=== PATIENT | female | born 1990 | race Caucasian/White ===

== ENCOUNTER 2024-01-06 17:43 | Outpatient (CLI) | payer BC, SELFPAY ==
[2024-01-06 17:58] VITALS: BP 131/80; PULSE 103
[2024-01-06 18:01] VITALS: RESP 17; TEMP 37.2
[2024-01-06 18:37] LABS: Amnisure Rom* Negative
[2024-01-06] MEDS: hydrOXYzine pamoate 25 MG CAPSULE 100 MG PO (20:25)
[2024-01-06] MEDS: MORPHINE 10 MG/ML inj IM (20:25)
--- NOTE | 2024-01-21 02:45 | PC.OBNST ---
NST Note NST Note Start: 01/06/24 17:46 Freq: ONCE Status: Discharge Protocol: Document 01/06/24 18:40 [facility] (Rec: 01/21/24 02:45 [facility] [id number]) NST Note 2 Para (# of births) 1 EDC 01/29/24 Gestational Age In Weeks & Days 38 Weeks & 6 Days Patient Presented with Complaint(s) of Contractions/cramping Reactive Yes Appropriate for Gestational Age Yes RN GerardoCase Date 01/06/24 ANGEL Kemp RN Date 01/06/24 OB NST charge Yes Complete NST Note via Write Note Yes The provider's electronic signature indicates the NST is reactive/appropriate for gestational age. *Note to provider: If an addendum is required, open the patient's chart and click on the note under the Nurse/Allied Health tab.
== END 2024-01-06 20:33 | disposition home or self-care (01) ==
LOC: OB OUT 17:43 → OB 17:44
PROVIDERS: PCP Student in an Organized Health Care Education/Training Program; Visit Provider Family Medicine
DX: O47.1 False labor at or after 37 completed weeks of gestation (principal); Z3A.38 38 weeks gestation of pregnancy
CPT/HCPCS: 59025; 84112; G0463; A9270; J2270

== ENCOUNTER 2024-01-07 18:45 | Inpatient (IN) | payer BC, SELFPAY ==
[2024-01-07] VITALS (39 sets, daily range): BP systolic 107–164; BP diastolic 57–87; PULSE 74–129; TEMP 36.9; O2SAT 90–100; BMI 34.3
[2024-01-07 18:48] LABS: Basophils Percent Auto 0.3 % (0.0-3.0); Eosinophils Percent Auto 0.3 % (0.0-7.0); Hematocrit 39.7 % (33.0-51.0); Immature Granulocytes Pct Auto 0.2 %; Lymphocytes Percent Auto 12.3 % (20-44); Mean Corpuscular HGB Conc 33 gm/dL (32-36); Mean Corpuscular Hemoglobin 30 pg (26-34); Mean Corpuscular Volume 91 fL (80-100); Monocytes Percent Auto 3.9 % (0.0-11.0); Platelet Count* 364 K/uL (140-440); RDW Coefficient of Variation % 12.8 % (11.5-15.5); Red Blood Count 4.37 m/uL (4.00-5.20); White Blood Count* 18.06 K/uL (4.50-11.00)
[2024-01-07 18:54] LABS: Slide Review Reflex No
[2024-01-07] MEDS: LACTATED RINGERS 1000 ML 1,000 ML 1200 ML IV ×2 (19:03→19:49)
[2024-01-07] MEDS: LIDOCAINE 2% (PF) 5 ML VIAL EPIDURAL (19:45)
[2024-01-07] MEDS: ROPIVACAINE 0.2% 100 ml 100 ML 10 MG EPIDURAL (19:45)
--- NOTE | 2024-01-07 19:52 | PM.ANBPRC ---
PFSH PFSH Social History What is your current living situation?: I presently have a place to live Problems where you live: no known problems In the past 12 months, utilities in danger of being shut off: no In past 12 months, lack of transportation kept you from medical appts, meetings, work, or getting things needed for daily living: no In the past 12 mos, have been you worried that your food would run out before you had money to buy more?: never true In the past 12 mos, the food you bought just didn't last and you didn't have money to buy more?: never true Smoking Status: Never smoker How often does anyone, including family, friends and others, physically hurt you: never How often does anyone, including family, friends and others, insult or talk down to you: never How often does anyone, including family, friends and others, threaten you with harm: never How often does anyone, including family, friends and others, scream or curse at you: never Meds Home Medications and Allergies Allergies Allergy/AdvReac Type Severity Reaction Status Date / Time No Known Allergies Allergy Verified 01/06/24 18:19 Results Labs Labs: Laboratory Results - last 24 hr 01/07/24 18:39 WBC 18.06 H RBC 4.37 Hgb 13.0 Hct 39.7 MCV 91 MCH 30 MCHC 33 RDW Coeff of [place]im 12.8 Plt Count 364 Neut % (Auto) 83.0 H Lymph % (Auto) 12.3 L [place] % (Auto) 3.9 Eos % (Auto) 0.3 Baso % (Auto) 0.3 Neut # (Auto) 15.00 H Lymph # (Auto) 2.20 [place] # (Auto) 0.70 Eos # (Auto) 0.10 Baso # (Auto) 0.10 Abs Immat Gran (auto) 0.00 Imm/Tot Granulo (auto) 0.2 Vital Signs Vital Signs: Last Vital Signs Pulse 99 01/07/24 19:51 BP 136/78 01/07/24 19:51 Pulse Ox 100 01/07/24 19:51 Weight: 85.23 kg Height: 157.48 cm Anesthesia Procedures Epidural Insertion Patient Location: OB Start Time: 19:37 Stop Time: 20:00 Start Date: 01/07/24 Stop Date: 01/07/24 Reason for Block: primary anesthetic Patient Position: sitting Performed By: Isac Leung Preanesthetic Checklist: IV checked, risks and benefits discussed, surgical consent, monitors and equipment checked, pre-op evaluation, timeout performed and anesthesia consent Prep: chlorhexidine gluconate Monitoring: blood pressure monitoring, radiation monitor, continuous pulse oximetry and heart rate Approach: midline Vertebral Space: lumbar (1-5) Needle Type: Tuohy needle Injection Technique: continuous catheter (catheter) Needle gauge: 17 Needle Length (cm): 10 cm Needle Insertion Depth (cm): 5 Catheter Gauge: 19 Catheter Type: multi-orifice Catheter at skin depth (cm): 10 Test Dose Result: negative and lidocaine 1.5% with epinephrine 1 to 200,000
--- NOTE | 2024-01-07 22:15 | PM.OBHPLI ---
OB - H&P: HPI Labor/Induction History of Present Illness Date Seen: 01/07/24 Chief Complaint: The patient is a 33 year old 2 para 1 at 39 weeks gestation by embryo transfer date, who presents with painful regular contractions. Chief complaint: OB : 2 Para: 1 Narrative: Chacho Ortiz is a 33 year old at 39 weeks by embryo transfer who presented to labor and delivery this evening with painful regular contractions. Contractions started 01/05/24, and had been every 5-6 minutes, however she was not making cervical change. This evening was 4.5 cm on arrival (had been 3 on previous checks). She denies LOF. has been uncomplicated. Since arrival, she has recieved an epidural for analgesia and is comfortable. Cervix 8/90/0. She underwent AROM with return of a large amount of clear fluid. History of Present Dating criteria: other (embryo transfer) care: good care Ultrasounds: normal 1st trimester US and normal mid trimester US Medical complications: none Labs Blood type: A (+) positive Rubella: immune RPR/VDLR: nonreactive GBS status: negative HBsAG: negative Review of Systems Status of ROS: Reports: 6 or more systems reviewed and unremarkable except as noted in History and below Meds Home Medications and Allergies Home Medications Medication Instructions Recorded Confirmed Type No Known Home Medications 01/07/24 01/07/24 History Allergies Allergy/AdvReac Type Severity Reaction Status Date / Time No Known Allergies Allergy Verified 01/06/24 18:19 OB - H&P: Exam Physical Exam: Vital signs: Temp Pulse BP Pulse Ox 98.5 F 104 H 125/81 100 01/07/24 21:28 01/07/24 22:13 01/07/24 22:13 01/07/24 20:06 Constitutional: Constitutional: no acute distress Routine HEENT Exam: Head: Present atraumatic and normal inspection Eye: Present EOMI and PERRL ENT: Present mucous membranes moist Routine Neck Exam: Neck: Present full ROM Routine Respiratory Exam: Respiratory: Present CTA bilaterally Routine Cardiovascular Exam: Cardiovascular: RRR Detailed Labor and Delivery Exam: Patient Gravid: Yes Dilation (cm): 8 Effacement (%): 90 Cervix position: anterior Consistency: soft Contraction frequency (min): 5 Contraction intensity: Moderate Fetus (Single): Station: 0 Amniotic Membrane Status: AROM Amniotic Membrane Fluid Description: Clear Heart Rate Baseline: 135 Monitor Accelerations: Present Monitor Decelerations: None Residential Variability: Moderate (6-25) Routine Extremities Exam: Comments: no edema Routine Skin Exam: Present intact and normal turgor Routine Neurological Exam: Present alert, oriented X3 and CN II-XII intact Routine Psychiatric Exam: Present normal affect and normal thought process OB - Results Labs Labs: Short CBC 01/07/24 Range/Units 18:39 WBC 18.06 H (4.50-11.00) K/uL Hgb 13.0 (12.0-16.0) gm/dL Hct 39.7 (33.0-51.0) % Plt Count 364 (140-440) K/uL OB - Problem Based A/P Additional Plan (1) Active labor at term: Status: Acute Plan expectant management. Discussed adding pitocin if needed to increase frequency of contractions, especially during second stage. Anticipate . PP hemorrhage with last delivery. Will have pp hemorrhage medications ready if needed. Delivery/Labor/Induction Plan Plan: expectant management
[2024-01-08] VITALS (66 sets, daily range): BP systolic 63–143; BP diastolic 35–83; PULSE 72–129; RESP 14–20; TEMP 36.2–37.2; O2SAT 97–100
[2024-01-08] MEDS: OXYTOCIN 30 unit/500 ML in NS 30 UNIT/500 ML BAG 325 UNIT IVPB (02:01)
[2024-01-08] MEDS: LACTATED RINGERS 1000 ML 1,000 ML 125 ML IV (02:36)
[2024-01-08] MEDS: IBUPROFEN 600 MG TABLET PO ×4 (02:44→22:10)
[2024-01-08] MEDS: CEFAZOLIN 2 GM in 0.9 % SODIUM CHLORIDE Mini-bag 100 ML IVPB (03:07)
[2024-01-08] MEDS: METHYLERGONOVINE MALEATE 0.2 MG/ML INJ IM (03:12)
--- NOTE | 2024-01-08 03:21 | W.PM.VAGDEL1 ---
Procedure Procedure Done: Global Delivery augmentation: rupture of membranes Delivery monitor: external FHT and external uterine Route of delivery: Laceration description: None Estimated blood loss (mL): 750 Anesthesia type: Epidural Complications: Retained placenta. Narrative: The patient is a 33 year-old admitted on 01/07/2024 at 39 Weeks, 0 Days gestation for active labor.? Cervical exam on admission was 4 cm/80 % effaced/-2 station with membranes intact in vertex presentation.? Contractions were every 5-6 minutes.? heart rate demonstrated baseline 145 bpm with moderate variability, + accelerations, - decelerations; a category 1 tracing.? AROM occurred at 2210 with clear fluid. ? Labor Analgesia:? epidural ? Pitocin:? post-delivery ? Labor onset:? 2139 ? Complete:? 0116 ? Pushing:? 0120 ? heart tones during second stage were category 2. ? At 0200 a viable female delivered in vertex OA presentation over intact perineum via spontaneous vaginal delivery.? Infant was placed on maternal abdomen.? Cord was clamped and cut after a 30-60 second delay.? Nose and mouth were bulb suctioned.? Infant weight pending.? 8 at 1 minute and 9 at 5 minutes.? Shoulder dystocia: no.? Nuchal cord: no. ? Placenta did not deliver spontaneously. Attempt was made to manually remove the placenta after the umbilical cord detached at 0220. Placental removal as not successful, so mirror machine feeder military communications specialist was called to the bedside. Dr. Gillis was able to partially remove the placental at 0300 and patient was then taken to the OR for examination under anesthesia and removal. See her note for details. ? Mother and were stable after delivery. ? Lacerations:? none. ? Blood loss: 750 mL. Blood loss measurement type: QBL ? Sponge and needles counts are correct. [place] Infant Gender: Female presentation: vertex Placental Delivery Description: Spontaneous Cord Description: 3 Vessels
--- NOTE | 2024-01-08 03:22 | PM.OBCN1 ---
OB - CN: HPI Date of Consult Time Seen by Provider: 03:22 Date Seen: 01/08/24 Patient: Serena Patient Consult date: 01/08/24 Requesting Physician: Sia Davies MD Primary Care Provider: Sangeeta Armendariz MD Consult Narrative Narrative: Chacho is a 33 year old G 2, now P2 at 39 weeks gestation that was admitted to the Center on 01/07/24 for spontaneous labor. She had an uncomplicated delivery with Dr. Davies. I was consulted for retained placenta after 30 minutes traction without delivery. She had attempted a manual sweep but felt that the placenta was too tethered so aborted the attempt. This is an IVF and she had retained placenta last time as well. No known uterine anomalies and her ultrasound had been normal throughout . Fundus was 2 cm above the umbilicus on my initial exam. She has great pain control. I did manual sweep at bedside and was able to remove most of the placenta. It did not come out intact. BSUS showed a retained piece of the placenta at the uterine fundus. I recommended exam under anesthesia and suction dilation and curettage. I would not be able to remove it manually and leaving it would risk infection and hemorrhage. Risks/benefits/alternative was discussed at the patient. We also discussed risk of laparoscopic surgery including pain, bleeding, infection, and damages to the surrounding structures of the operative site. All questions were answered to patient's satisfaction and she signed consent for exam under anesthesia and suction dilation and curettage. 2 grams of Ancef given She received 40 u of pitocin and 0.2mg of methergine x 1 due atony after placenta removal. She responded well to the intervention and uterus was firm and 2 cm below umbilicus. EBL of delivery and placenta extraction: 750 cc - OR team notified History History 2 Elective abortions Para 2 Spontaneous abortions Hx # Term Pregnancies Ectopic pregnancies Hx # Pregnancies Multiple births Number of Living Children 1 Labs Blood type: A (+) positive Rubella: immune RPR/VDLR: nonreactive GBS status: negative HBsAG: negative OB Labs: Lab Assessment Start: 01/07/24 18:34 Freq: ONCE Status: Complete Protocol: PC.OBGBS Activity Type Activity Date Activity User E-sign Co-sign Detail Recorded Client Recorded Date Recorded By Document 01/07/24 18:35 HCR [id number] 01/07/24 18:39 HCR 01/07/24 18:35 Lab Assessment GBS Status negative GBS Additional Criteria None No Treatment Needed OK Are Labs Available Yes Maternal Blood Type A Maternal RH Factor Positive Evaluate Maternal Rubella Immune Status Immune Hepatitis B Surface Antigen Negative Maternal HIV Status Negative Maternal Syphillis (RPR) Status Negative [facility] Medical History (Updated 01/08/24 @ 07:54 by Ninfa Gillis MD) SHAYY II (cervical intraepithelial neoplasia II) ?N87.1 - Moderate cervical dysplasia (ICD-10) Asthma ?J45.909 - Unspecified asthma, uncomplicated (ICD-10) Social History What is your current living situation?: I presently have a place to live Problems where you live: no known problems In the past 12 months, utilities in danger of being shut off: no In past 12 months, lack of transportation kept you from medical appts, meetings, work, or getting things needed for daily living: no In the past 12 mos, have been you worried that your food would run out before you had money to buy more?: never true In the past 12 mos, the food you bought just didn't last and you didn't have money to buy more?: never true Smoking Status: Never smoker How often does anyone, including family, friends and others, physically hurt you: never How often does anyone, including family, friends and others, insult or talk down to you: never How often does anyone, including family, friends and others, threaten you with harm: never How often does anyone, including family, friends and others, scream or curse at you: never Meds Home Medications and Allergies Home Medications Medication Instructions Recorded Confirmed Type No Known Home Medications 01/07/24 01/07/24 History Allergies Allergy/AdvReac Type Severity Reaction Status Date / Time No Known Allergies Allergy Verified 01/06/24 18:19 OB - H&P: Exam Physical Exam: Vital signs: Temp Pulse BP Pulse Ox 98.5 F 112 H 127/75 100 01/07/24 23:01 01/08/24 03:14 01/08/24 03:14 01/07/24 20:06 OB - Results Labs Labs: Short CBC 01/07/24 Range/Units 18:39 WBC 18.06 H (4.50-11.00) K/uL Hgb 13.0 (12.0-16.0) gm/dL Hct 39.7 (33.0-51.0) % Plt Count 364 (140-440) K/uL OB - CN: A/P Assessment and Plan (1) Status post vaginal delivery: Status: Acute (2) Retained placenta: Status: Acute
[2024-01-08] MEDS: PHENYLEPHRINE 100 MCG/ML SYRINGE IVP ×4 (03:25→05:19)
[2024-01-08] MEDS: ONDANSETRON 2 MG/ML inj 4 MG IV (04:32)
[2024-01-08] MEDS: ROPIVACAINE 0.2% 100 ml 100 ML 10 MG EPIDURAL (04:57)
[2024-01-08] MEDS: ePHEDrine sulfate 5 MG/ML inj 10 MG IVP (05:25)
[2024-01-08] MEDS: CLINDAMYCIN 900 MG/50 ML-D5W IVPB (06:25)
[2024-01-08] MEDS: GENTAMICIN 320 MG in 0.9 % SODIUM CHLORIDE 100 ml 100 ML 108 MG IVPB (06:45)
[2024-01-08] MEDS: LACTATED RINGERS 1000 ML 1,000 ML 935 ML IV (06:45)
[2024-01-08] MEDS: AMPICILLIN 2 GM in 0.9 % SODIUM CHLORIDE Mini-bag 100 ML IVPB (07:10)
--- NOTE | 2024-01-08 07:19 | P.ANES_ITS ---
Anesthesia Charges Start Date/Time Anesthesia Start Date: 01/08/24 Anesthesia Start Time: 06:16 Stop Date/Time Anesthesia Stop Date: 01/08/24 Anesthesia Stop Time: 07:14 Summary Emergency: [employer]
[2024-01-08] MEDS: ACETAMINOPHEN 500 MG TABLET 1000 MG PO ×2 (07:56→13:50)
--- NOTE | 2024-01-08 07:58 | P.GYNPRC_ITS ---
Procedure Note Time Seen by Provider: 06:00 Date of procedure: 01/08/24 Procedure Description: DILATION AND CURETTAGE PREOPERATIVE DIAGNOSIS: 1. Retained placenta POSTOPERATIVE DIAGNOSIS: Retained placenta PROCEDURE: 1. EUA 2. Suction dilation and curettage - ultrasound-guided SURGEON: Ninfa Gillis MD ANESTHESIA: General FINDINGS: 1. Uterus 2 cm below the umbilicus/ anteverted/ no adnexal masses on EUA. 2. Normal external genitalia - no perineal lacerations, normal appearing pos tpartum cervix without lacerations. Clots noted in the lower uterine segment 3. Retained placenta at the fundus FLUIDS: 1.3 L QUANTITATIVE BLOOD LOSS: 315 mL URINE OUTPUT: 200 mL COMPLICATIONS: None PREOP ANTIBIOTIC: Ampicillin 2 mg, gentamicin 5mg/kg, and clindamycin 900 mg SPECIMEN: 1. Retained products of conception INDICATIONS: 33 yo G2 P 2001, with diagnosis of retained placenta. DESCRIPTION OF PROCEDURE: Chacho was taken to the operating room around 0600. She was delayed due to another emergency procedure. She was very understanding and her bleeding and vitals were stable throughout the delay. General anesthesia was administered. She was prepared and draped in normal sterile fashion in the dorsal lithotomy position in [facility], taking care to avoid lower extremity hyperextension, hyperflexion or compression. A surgical time-out was performed with the entire operative staff per protocol. Perioperative antibiotics were given and pneumoboots were placed and activated. EUA revealed the above findings. Bladder was drained with jaimes. A speculum was placed in the patient's vagina and ring forceps was placed on the anterior lip of the cervix. The cervix was already dilated to accommodate 12 [place] suction curettage. The suction curettage was then inserted under direct visualization and with ultrasound guidance. The uterus was then gently suction curetted and rotated to clear the uterus of all retained products. This was performed until a gritty texture was noted and the uterus was cleared of all remaining products. Final ultrasound showed an endometrial strip of <2mm in the transverse and sagittal view. There was minimal bleeding noted after the suction curettage was removed. The ring forcep was removed from the anterior lip of the cervix and excellent hemostasis was noted. All instruments were removed. Debrief performed per protocol and specimen reviewed. Specimen was sent to pathology. The patient tolerated the procedure well. Sponge, lap and needle counts were correct x 2. The patient was taken to the recovery room in stable condition.
[2024-01-08] MEDS: DOCUSATE SODIUM 100 MG CAPSULE PO (09:57)
[2024-01-08 11:56] LABS: Basophils Percent Auto 0.2 % (0.0-3.0); Immature Granulocytes Pct Auto 0.3 %; Mean Corpuscular HGB Conc 33 gm/dL (32-36); Mean Corpuscular Hemoglobin 31 pg (26-34); Mean Corpuscular Volume 92 fL (80-100); Monocytes Percent Auto 3.6 % (0.0-11.0); Neutrophils Percent Auto 86.9 % (42.0-72.0); Platelet Count* 276 K/uL (140-440); RDW Coefficient of Variation % 13.2 % (11.5-15.5); Red Blood Count 2.62 m/uL (4.00-5.20); White Blood Count* 24.48 K/uL (4.50-11.00)
[2024-01-08 12:14] LABS: Slide Review Reflex No
[2024-01-08] MEDS: FERROUS SULFATE 325 MG TABLET PO (13:44)
[2024-01-09] VITALS (9 sets, daily range): BP systolic 99–115; BP diastolic 65–76; PULSE 89–105; RESP 16; TEMP 36.3–36.8; O2SAT 96–98
[2024-01-09] MEDS: ACETAMINOPHEN 500 MG TABLET 1000 MG PO ×4 (04:59→23:05)
--- NOTE | 2024-01-09 06:35 | PC.NURSE ---
Mom and baby rested well this night. Mom's Pain and bleeding controlled. Baby taking in breast milk with good latch for 30 min feedings; also some supplement of Similac. Baby had many wet diapers and several stools. VS unremarkable. 24 hr Screens complete. Baby wt At 27 hours old was 6 lbs 6 oz (drop of 4.8%)
[2024-01-09 07:00] LABS: Hemoglobin* 6.5 gm/dL (12.0-16.0)
[2024-01-09] MEDS: DOCUSATE SODIUM 100 MG CAPSULE PO (07:52)
[2024-01-09] MEDS: IBUPROFEN 600 MG TABLET PO ×3 (07:52→20:58)
[2024-01-09] MEDS: FERROUS SULFATE 325 MG TABLET PO (07:53)
--- NOTE | 2024-01-09 11:10 | P.OBPN_ITS ---
OB - PN:Subj Subjective Date Seen: 01/09/24 Interval history: Feeling well - vaginal bleeding has been appropriate. No clots noted. Patient denies headache, dizziness, chest pain, SOB. Up moving around without difficulty. Hgb notably low this AM at 6.5 - patient consents to blood transfus ion. Notes she had to have this after her previous delivery as well. OB - PN: Obj Exam Physical Exam: Vital signs: Temp Pulse Resp BP Pulse Ox O2 Del Method 97.8 F 105 H 16 110/69 98 Room Air 01/09/24 10:23 01/09/24 10:23 01/09/24 10:23 01/09/24 10:23 01/09/24 09:59 01/09/24 07:50 Constitutional: Constitutional: no acute distress Routine Respiratory Exam: Respiratory: Present CTA bilaterally Routine Cardiovascular Exam: Cardiovascular: Present RRR and murmur Routine Abdominal Exam: Abdominal: Absent tenderness Fundus: Present firm OB - PN: Obj Data Labs Labs: Laboratory Results - last 24 hr 01/07/24 01/08/24 01/08/24 18:39 11:48 18:35 WBC 24.48 H RBC 2.62 L Hgb 8.0 L 8.0 L Hct 24.0 L MCV 92 MCH 31 MCHC 33 RDW Coeff of [place] 13.2 Plt Count 276 Neut % (Auto) 86.9 H Lymph % (Auto) 9.0 L [place] % (Auto) 3.6 Eos % (Auto) 0.0 Baso % (Auto) 0.2 Neut # (Auto) 21.30 H Lymph # (Auto) 2.20 [place] # (Auto) 0.90 Eos # (Auto) 0.00 Baso # (Auto) 0.00 Abs Immat Gran (auto) 0.10 Imm/Tot Granulo (auto) 0.3 Blood Type A Positive Antibody Screen NEGATIVE Crossmatch (AHG) See Detail 01/09/24 06:29 WBC RBC Hgb 6.5 L* Hct MCV MCH MCHC RDW Coeff of [place] Plt Count Neut % (Auto) Lymph % (Auto) [place] % (Auto) Eos % (Auto) Baso % (Auto) Neut # (Auto) Lymph # (Auto) [place] # (Auto) Eos # (Auto) Baso # (Auto) Abs Immat Gran (auto) Imm/Tot Granulo (auto) Blood Type Antibody Screen Crossmatch (AHG) OB - PN: A/P Delivery Assessment and Plan (1) Status post vaginal delivery: Status: Acute (2) Retained placenta: Status: Acute (3) Acute blood loss anemia: Status: Acute Plan day: 1 Comments: PPD #1. S/p vaginal delivery and subsequent D&C for retained placenta now with anemia to 6.5 g/dl. Patient is asymptomatic. - consent obtained for blood transfusion - transfuse 1 unit pRBC - continue PO ferrous sulfate daily - recheck Hgb 4 hours post-transfusion and again in AM - anticipate discharge home tomorrow, 01/10
[2024-01-09 18:10] LABS: Hemoglobin* 8.5 gm/dL (12.0-16.0)
[2024-01-09 18:19] LABS: Rapid Plasma Reagin (RPR) Non Reactive (Non Reactive)
[2024-01-10 01:00] VITALS: BP 120/81; PULSE 89; RESP 16; O2SAT 96
[2024-01-10] MEDS: IBUPROFEN 600 MG TABLET PO ×2 (04:36→11:55)
[2024-01-10] MEDS: ACETAMINOPHEN 500 MG TABLET 1000 MG PO (06:09)
[2024-01-10 07:27] LABS: Hemoglobin* 7.5 gm/dL (12.0-16.0)
[2024-01-10 09:20] VITALS: BP 116/77; PULSE 94; RESP 16; TEMP 36.8; O2SAT 100
[2024-01-10] MEDS: DOCUSATE SODIUM 100 MG CAPSULE PO (09:33)
[2024-01-10] MEDS: FERROUS SULFATE 325 MG TABLET PO (09:34)
--- NOTE | 2024-01-10 11:40 | P.DS_ITS ---
DS: Providers Provider Time Seen by Provider: 07:45 Date Seen: 01/10/24 Date of admission: 01/07/24 18:45 Primary care physician: Sangeeta Armendariz MD Admitting Clinician: Sia Davies MD Consults: [employer]KER, Dr. Ninfa Gillis Attending Physician on discharge: Sia Davies MD Date of Discharge: 01/10/24 DS: Diagnosis Discharge Diagnosis (1) Active labor at term: Status: Acute (2) Retained placenta: Status: Acute (3) hemorrhage: Status: Acute (4) Acute blood loss anemia: Status: Acute Exam Narrative: Exam Narrative: General appearance: Well-appearing adult female. Alert, oriented and appropriate. Sitting up in hospital bed. HEENT: EOMI, no conjunctival injection or discharge. MMM. Neck: Supple. CV: RRR, no rubs, murmurs or extra heart sounds. Pulm: CTAB, no wheezes, rales or rhonchi. Abdomen: Soft, non-tender. Fundus palpated at the umbilicus. MSK: Moving all extremities. Ext: Warm and well-perfused. Trace LE edema. Skin: No rashes appreciated over exposed skin. Neuro: Grossly normal strength and sensation. No focal deficits. Psych: Normal affect. Const: Vital Signs, click to edit/add: Vital Signs - 24 hr 01/09/24 12:35 01/09/24 16:45 01/10/24 01:00 Temperature 98 F 97.9 F Pulse Rate 105 H Pulse Rate [Right Pulse Oximeter] 101 H 89 Respiratory Rate 16 16 16 Blood Pressure 108/65 Blood Pressure [Le ft Arm] 115/71 120/81 Pulse Oximetry 98 98 96 Oxygen Delivery Me thod Room Air Room Air 01/10/24 09:20 Temperature 98.2 F Pulse Rate Pulse Rate [Right Pulse Oximeter] 94 Respiratory Rate 16 Blood Pressure Blood Pressure [Le ft Arm] 116/77 Pulse Oximetry 100 Oxygen Delivery Me thod Room Air Documenting provider has reviewed patient's vital signs: yes OB - DS: Summary Hospital Course Hospital Course: The patient is a 33 year old G 2 now P 2 at 39w1d weeks gestation that was admitted to the Center on 01/07/24 for spontaneous labor. She had a vaginal delivery complicated by retained placenta and post- hemorrhage. She delivered a viable female infant. Attempt at manual extraction was made but unsuccessful. CUSTOM LE[employer]ER [employer]ODUCTS MAKER was consulted, Dr. Gillis. She was taken to the OR for D&C. Post-operative hemoglobin was 8.0, dropped to 6.5 on PPD #1. She received 1 unit PRBC. Hemoglobin improved to 8.5, trended down to 7.5 on day of discharge. Patient asymptomatic from an anemia standpoint. On day of discharge feeling well. Moderate lochia. Voiding and stooling without difficulty. Pain well controlled with oral medication. No mood concerns. She is pumping and supplementing with formula. Would like to breastfeed, but latch has been difficult. Planning to meet with prior to discharge. Peripartum Data Infant delivery method: Vaginal Laceration description: None Procedures: Procedures Operation Date: 01/08/24 03:55 Actual Procedure Side Surgeon p Exam Under Anesthesia, Suction Dilatation & Curettage, ultrasound guided Ninfa Yong Gillis MD Procedures: D&C complications: retained placenta [place] Infant Gender: Female Discharge Plan: Home Status at Discharge Functional status at discharge: independent ambulation Overall status at discharge: patient is progressing back to baseline Time Spent with Patient Time attestation: Total time spent providing and/or coordinating discharge services: Discharge Plan Discharge Disposition: Home, Self-Care Date of Admission: 01/07/24 18:45 Attending Provider on Discharge: Nafisa Montenegro Primary Care Provider: Sangeeta Armendariz Condition: Stable Anticipated Discharge Date/Time: 01/10/24 08:08 Discharge Medications: New acetaminophen 500 mg Tablet 1,000 mg PO Q6H PRNQty: 30 0RF docusate sodium 100 mg Capsule 100 mg PO DAILY Qty: 30 0RF ferrous sulfate 325 mg (65 mg iron) Tablet 325 mg PO Q OTHER DAY Qty: 60 0RF ibuprofen 600 mg Tablet 600 mg PO Q6H PRNQty: 30 0RF Discharge Orders: Discharge Order (Routine); Ordered 01/10/24 Ordered By: Nafisa Montenegro Patient Education: Dilation and Curettage (DC), OB Over the Counter Medication Information, OB Vaginal/Bottle Feeding Activity Level: Activity as Tolerated Discharge Diet: Regular Follow Up Appointments: Sangeeta Armendariz MD [Primary Care Provider] - [facility]: [facility] Instructions Discharge Comments: Dr. Davies will discuss follow-up plans at baby's weight check 01/12/24
--- NOTE | 2024-01-10 13:40 | PM.ANPOST ---
Post Anesthesia Note Post Anesthesia Note Patient seen: Inpatient Respiratory Status: adequate Cardiovascular Status: adequate Mental Status: baseline Pain: adequate Temp: baseline Anesthetic awareness: N/A Complications: none Follow care: none
== END 2024-01-10 13:09 | disposition home or self-care (01) | DRG 541 ==
LOC: OB OUT 01-10 12:00 → OB 01-10 12:01
PROVIDERS: Family Medicine; Obstetrics & Gynecology; Admitting Provider Family Medicine; PCP Student in an Organized Health Care Education/Training Program; Visit Provider Family Medicine
DX: O72.0 Third-stage hemorrhage (principal); D62 Acute posthemorrhagic anemia; O90.81 Anemia of the puerperium; Z37.0 Single live birth; Z3A.39 39 weeks gestation of pregnancy; Z87.42 Personal history of other diseases of the female genital tract; Z87.59 Personal history of other complications of pregnancy, childbirth and the puerperium
CPT/HCPCS: 00940; 01967; 36415; 36430; 85018; 85025; 86592; 86850; 86900; 86901; 86922; 88305; 88307; 88341; 88342; 99140; G0463; A9270; J0290; J0330; J0690; J0736; J1580; J2210; J2371; J2405; J2704; J2795; J3010; J7120; P9016